=== PATIENT | female | born 1950 | race Caucasian/White ===

== ENCOUNTER → 2025-07-30 | Outpatient (CLI) | payer BC, SELFPAY ==
[2025-07-30 12:33] LABS: AST(SGOT) 30 U/L (<=31); Alanine Aminotransfer ALT/SGPT 23 U/L (<=34); Albumin, Serum 4.5 g/dL (3.4-4.8); Alkaline Phosphatase 82 U/L (35-104); Anion Gap 16 (5-15); BUN 14 mg/dL (4-19); BUN/Creat Ratio 19.8 RATIO (10-20); Bilirubin, Direct 0.52 mg/dL (0.00-0.30); Calcium,Total 9.6 mg/dL (7.6-11.0); Carbon Dioxide 22.4 mmol/L (21.0-32.0); Chloride 100 mmol/L (98-108); Cholesterol 235 mg/dL (<=200); Globulin 3.3 g/dL (2.2-4.2); Glucose 84 mg/dL (70-99); Low Density Lipoprotein Calc. 163 mg/dL; Potassium 4.4 mmol/L (3.3-5.1); Triglycerides 126 mg/dL; Very Low Density Lipoprotein 25 mg/dL (5-40); cholesterol:hdl ratio screen 4.79
[2025-07-31 08:09] LABS: CRP, High Sensitivity 3.39 mg/L (0.00-3.00)
== END | disposition home or self-care (01) ==
LOC: CIMLAB 10:31
PROVIDERS: PCP Internal Medicine; Referring Provider Internal Medicine; Visit Provider Internal Medicine
DX: R79.82 Elevated C-reactive protein (CRP) (principal); R17 Unspecified jaundice; E78.5 Hyperlipidemia, unspecified; R53.83 Other fatigue
CPT/HCPCS: 36415; 80053; 80061; 82248; 86141